=== PATIENT | female | born 1975 | race Caucasian/White ===

== ENCOUNTER 2025-02-17 14:09 | Emergency (ER) | payer BC ==
[~2025-02-17] VITALS: Ht 160 cm; Wt 106.6 kg
== END 2025-02-17 15:52 | disposition home or self-care (01) ==
LOC: ER 14:09
DX: S83.411A Sprain of medial collateral ligament of right knee, initial encounter (principal); Z59.89 Other problems related to housing and economic circumstances; X58.XXXA Exposure to other specified factors, initial encounter
CPT/HCPCS: 73562-RT; 99283-25